=== PATIENT | male | born 1945 | race Caucasian/White ===

== ENCOUNTER 2020-08-21 14:19 | Inpatient (IN) | payer OTHER ==
[~2020-08-21] VITALS: Ht 182.9 cm; Wt 81.6 kg
--- NOTE | ~2020-08-21 | HEMODYNAMI ---
PATIENT:JOSEPH GUNTER MEDICAL RECORD: [id number] : 45 LOCATION:DDanielSD D.2222 ADMISSION DATE: 08/23/20 Generatedon:115:29 Patient name: JOSEPH GUNTER Patient #: [id number] SSN: : Date of study: 08/26/2020 Page: Of Hemodynamic Procedure Report Patient Data Patient Demographics Procedure consent was obtained First Name: OJSEPH Gender: Male Last Name: JANI : 1945 Patient #: [id number] Age: 75 year(s) Race: Unknown Additional ID: [id number] Contact details Address: [facility] State: [place] City: [place] Zip code: [address] Past Medical History Allergies: No known allergies Admission Admission Data Admission Date: 08/23/2020 Admission Time: 17:17 Room #: D.2222 Procedure Procedure Types Cath Procedure Peripheral Cath Diagnostic Procedure Kyphoplasty Kyphoplasty Lumbar Procedure Description Procedure Date Procedure Date: 08/26/2020 Procedure Start Time: 14:56 Procedure End Time: 15:29 Procedure Staff Name Function Caio Mayorga MD Performing Physician Whit Lacey RT Block Breaker Operator YESSICA TORRES RT Block Breaker Operator Lorenza Isabel RN Nurse Abeba Joaquin RN Nurse Sanjay Powell RT Scrub Ree Barry CRNA Additional personnel Procedure Data Cath Procedure Fluoroscopy Diagnostic fluoroscopy Total fluoroscopy Time: 5.9 time: 5.9 min min Diagnostic fluoroscopy Total fluoroscopy dose: 218 dose: 218 mGy mGy Hemodynamics Rest Pre Cath Intra NCS Post Cath Procedure Log Time Note 14:11:54 Use device set IR Diagnostic 14:21:47 Time tracking: Regular hours (M-F 7:00 - 5:00) 14:21:56 Plan of Care:Hemodynamics will remain stable., Cardiac rhythm will remain stable., Comfort level will be maintained., Respiratory function will remain adequate., Patient/ family verbilizes understanding of procedure., Procedure tolerated without complication., Recovers from procedure without complications.. 14:22:31 Patient received from Med/Surg to IR Alert and oriented. Tansferred to table in Prone position. 14:22:35 Signed procedure consent form obtained from patient. 14:22:41 H&P Date Dictated: 08/26/2020 Within 30 days and on chart.. 14:22:43 Pre-procedure instructions explained to patient. 14:22:44 Pre-op teaching completed and patient verbalized understanding. 14:22:46 Family unavailable. 14:22:48 Patient NPO since Midnight. 14:22:56 Patient allergic to No known allergies 14:23:03 Is the patient allergic to Iodine/contrast media? No. 14:23:17 Is patient on blood thinner?No 14:23:20 - 14:24:06 CAITLIN BNCMNT CURV BALLOON [id number] opened to sterile field. 14:24:07 Caitlin BONE CEMENT WITH NEEDLE AUTOPLEX Kit opened to sterile field. 14:24:11 Tegaderm 4 x 4 ([id number]) opened to sterile field. 14:24:16 Sterile Angiographic Pack opened to sterile field. 14:24:17 Bag Decanter () opened to sterile field. 14:24:22 - 14:28:21 ----Pre-sedation anethsthesia assessment.----SEE ANESTHESIA NOTES FOR MONITORING OF PATIENT DURING PROCEDURE 14:30:23 Lumbar area was prepped with dura-prep and draped in sterile fashion 14:30:27 Alarms reviewed by Nikhil Huertas 14:30:30 - 14:52:00 Physician arrived 14:52:25 --------ALL STOP TIME OUT------ 14:52:26 Final Timeout: patient, procedure, and site verified with staff and physician. All members of the team are in agreement. 14:52:30 Lumbar site verified by team. 14:56:10 Procedure started. 14:56:10 Full Disclosure recording started 14:56:49 Local anesthetic to Lumbar area with Lidocaine 1% by Caio Mayorga MD.INITIAL ACCESS ONLY 14:58:22 Ree Barry CRNA present and monitoring patient for TIVA. 15:00:40 Jamshidi needle introduced. 15:09:34 Bone bx needle placed. 15:13:54 Kyphoplasty balloon introduced. 15:16:52 Cement introduced to vertebral body. 15:27:17 Jamshidi needle removed. 15:28:00 Procedure ended.(Physican Out) 15:28:13 Fluoroscopy time 05.90 minutes. 15:28:20 Fluoroscopy dose: 218 mGy 15:28:20 Flurop Dose total: 218 15:28:26 Sharps counted by scrub and verified by R.N. 15:28:36 Post Lumbar area:stable, clean and dry 15:28:41 Procedure and supply charges have been captured, reviewed, submitted an d are correct. 15:28:59 Post procedure instruction explained to patient.Patient verbalizes understanding. 15:29:04 Operative report dictated upon procedure completion. 15:29:05 See physician's report for complete and final results. 15:29:11 Patient transfered to Med/Surg with Bed. 15:29:27 Procedure ended. 15:29:27 Full Disclosure recording stopped Device Usage Item Name Manufacture Quantity Catalog Hospital Part Current Minim al Lot# / Number Charge Number Stock Stock Serial# Code CAITLIN Caitlin 1 [id number] 1 BNCMNT CURV BALLOON [id number] Caitlin BONE [place] 1 [id number] 5 CEMENT WITH NEEDLE AUTOPLEX Kit Tegaderm 4 x 3M 1 1626W [id number] [id number] [id number] 5 4 (1626W) Sterile Cardinal 1 [id number] 5 Angiographic Health Pack Bag Decanter Microtek 1 [id number] 80590 [id number] 5 () [employer] Signature Audit [place] Stage Time Signature Unsigned Intra-Procedure 08/26/2020 YESSICA TORRES RT 3:29:42 PM (R) [place] [id number] [place] [id number]
[2020-08-21] MEDS ORDERED: ASPIRIN EC325 M1 PO (14:54)
[2020-08-21] MEDS ORDERED: LIPITOR10 MG PO (14:54)
[2020-08-21] MEDS ORDERED: DONEPEZIL HCL10 MG PO ×2 (14:56→21:50)
[2020-08-21] MEDS ORDERED: LANOXIN125 MCG PO ×2 (14:56→21:50)
[2020-08-21] MEDS ORDERED: MAG-OX 400 MG400 MG PO ×2 (14:57→22:00)
[2020-08-21] MEDS ORDERED: GUAIFENESI100 MG/5 M PO ×2 (14:57→21:51)
[2020-08-21] MEDS ORDERED: MELATONIN5 MG PO (14:57)
[2020-08-21] MEDS ORDERED: MINIPRESS1 MG PO ×2 (14:58→22:03)
[2020-08-21] MEDS ORDERED: PROPAFENONE HC150 MG PO ×2 (14:58→22:04)
[2020-08-21 15:20] LABS: BASOPHILS 0.5 % (0-2); EOSINOPHILS 2.5 % (0-7); HEMATOCRIT 42.7 % (42.0-54.0); IMMATURE GRANULOCYTES 0.3 % (0-5); LYMPHOCYTE ABS# 1.32 10x3/uL (1.32-3.57); LYMPHOCYTES 21.9 % (15-50); MCH 31.7 pg (26.0-34.0); MCHC 32.8 g/dL (31.0-37.0); MCV 96.8 fL (80.0-100.0); MEAN PLATELET VOLUME 10.1 fL (7.4-10.4); NEUTROPHIL ABS# 4.08 10x3/uL (1.78-5.38); NEUTROPHILS 67.8 % (40-80); PLATELET COUNT 155 10x3/uL (130-400); RBC 4.41 10x6/uL (4.20-6.10); RDW 13.9 % (11.5-14.5)
[2020-08-21 15:21] LABS: CALC OSMOLALITY 285 mosm/kg (275-300); CALCIUM 8.9 mg/dL (8.5-10.1); CARBON DIOXIDE 30.9 mmol/L (21.0-32.0); CHLORIDE - SERUM 106 mmol/L (98-107); GLUCOSE 134 mg/dL (74-106); POTASSIUM - SERUM 4.1 mmol/L (3.5-5.1); SODIUM 141 mmol/L (136-145); UREA NITROGEN 20 mg/dL (7-18); eGFR NON AFRICAN AMERICAN 77 mL/min (90-120)
[2020-08-21 15:27] LABS: ALBUMIN 3.2 g/dL (3.4-5.0); ALKALINE PHOSPHATASE 97 U/L (30-120); ALT (SGPT) 18 U/L (10-68); PROTEIN - SERUM 6.7 g/dL (6.4-8.2)
[2020-08-21 15:53] LABS: BILIRUBIN NEGATIVE (NEGATIVE); KETONE NEGATIVE (NEGATIVE); NITRITE NEGATIVE (NEGATIVE); UROBILINOGEN NORMAL mg/dL (< 2)
--- NOTE | 2020-08-21 16:03 | NUR ---
URINE COLLECTED ET SENT TO LAB.
--- NOTE | 2020-08-21 19:23 | NUR ---
ASSUMED CARE FOR PATIENT AT 1730. SETTLED IN ROOM WITH CALL LIGHT IN REACH. VSS WITH NO C/O FROM PATIENT. ROOM RECIEVED AND REPORT CALLED TO ACCEPTING RN.
[2020-08-21 19:33] VITALS: BP 151/85
--- NOTE | 2020-08-21 19:59 | NUR ---
REC'D PATIENT FROM ER TO ROOM 2222. PATIENT IS CONFUSED AND DENIES NEEDS AT THIS TIME. BED ALARM AND NON SLIP SOCKS IN PLACE. BED IN LOWEST POSITION AND CALL LIGHT WITHIN REACH. ENCOURAGED THE PATIENT TO CALL IF HE HAS NEEDS.
[2020-08-21] MEDS ORDERED: ASPIRIN325 MG PO (21:47)
[2020-08-21] MEDS ORDERED: LIPITOR20 MG PO (21:48)
[2020-08-21] MEDS ORDERED: MELATONIN10 M1 PO (22:00)
[2020-08-21] MEDS ORDERED: LOTRIMIN AF90 GM TOPICAL (22:02)
--- NOTE | 2020-08-21 22:12 | NUR ---
PATIENT OUT OF BED AGAIN. HAVE REDIRECTED PATIENT BACK TO BED SEVERAL TIMES. BROUGHT PATIENT TO NURSES STATION TO SIT IN A CHAIR. PATIENT DENIES OTHER NEEDS AT THIS TIME.
[2020-08-21 23:14] VITALS: BP 151/76; BMI 24.4
--- NOTE | 2020-08-21 23:36 | NUR ---
PATIENT STATED HE IS TIRED AND REQUESTED TO GO TO BED. PATIENT ASKED FOR HIS GLASSES. I WENT THROUGH PATIENT'S BELONGINGS WITH HIM AND DID NOT FIND GLASSES.
[2020-08-22] VITALS: BP 136/79
[2020-08-22 04:00] VITALS: BP 132/79
[2020-08-22 07:43] LABS: APTT 38.3 SECONDS (22.8-39.4); INR 1.26 (0.85-1.17); PROTIME 14.6 SECONDS (11.6-15.0)
--- NOTE | 2020-08-22 08:00 | NUR ---
PT ASSESSED. CL IN REACH. POSSE AND BED ALARM ON. WCTM
[2020-08-22 08:03] LABS: ALBUMIN 3.3 g/dL (3.4-5.0); ANION GAP 11.7 mmol/L (8-16); BILIRUBIN - TOTAL 0.76 mg/dL (0.2-1.3); CALCIUM 9.3 mg/dL (8.5-10.1); CREATININE - SERUM 1.1 mg/dL (0.6-1.3); PHOSPHOROUS 3.2 mg/dL (2.5-4.9); POTASSIUM - SERUM 3.7 mmol/L (3.5-5.1); PROTEIN - SERUM 6.9 g/dL (6.4-8.2)
[2020-08-22 08:40] LABS: BASOPHILS 0.7 % (0-2); EOSINOPHILS 3.7 % (0-7); HEMATOCRIT 43.7 % (42.0-54.0); HEMOGLOBIN 14.2 g/dL (13.5-17.5); IMMATURE GRANULOCYTES 0.3 % (0-5); LYMPHOCYTE ABS# 1.28 10x3/uL (1.32-3.57); LYMPHOCYTES 19.1 % (15-50); MCH 31.1 pg (26.0-34.0); MCHC 32.5 g/dL (31.0-37.0); MCV 95.6 fL (80.0-100.0); MEAN PLATELET VOLUME 11.1 fL (7.4-10.4); MONOCYTES 14.6 % (2-11); NEUTROPHIL ABS# 4.13 10x3/uL (1.78-5.38); NEUTROPHILS 61.6 % (40-80); RBC 4.57 10x6/uL (4.20-6.10); RDW 13.8 % (11.5-14.5); WBC 6.7 10x3/uL (4.8-10.8)
[2020-08-22 08:42] LABS: PLATELET COUNT 211 10x3/uL (130-400)
--- NOTE | 2020-08-22 10:06 | NUR ---
PT HAD SM BM IN BRIEF WITH URINE. BRIEF CHANGED. PT SAT UP FOR BREAKFAST. CL IN REACH. WCTM
[2020-08-22 10:34] VITALS: BP 120/59
--- NOTE | 2020-08-22 10:59 | NUR ---
WALKED PT 250 FT AROUND [place] AND BACK TO CHAIR. STATES HE IS TIRED NOW. CL IN REACH. [facility] CHAIR ALARM ON
[2020-08-22 11:00] VITALS: BP 118/85
--- NOTE | 2020-08-22 14:23 | NUR ---
WALKED WITH PATIENT AROUND MED SURG AND BACK TO ROOM. PT URINATED IN RESTROOM AND BACK TO BED. BED ALARM ON. WCTM
[2020-08-22 16:00] VITALS: BP 109/66
--- NOTE | 2020-08-22 19:00 | NUR ---
BEDSIDE REPORT RECEIVED AND CARE OF PT ASSUMED. PT SITTING IN A RECLINER AT THE NURSES STATION WITH DAY SHIFT NURSE AT THIS TIME....REFUSING TO STAY IN BED OR ROOM, AND WANDERING. ORIENTED TO SELF ONLY. WILL MONITOR FOR NEEDS.
--- NOTE | 2020-08-22 19:51 | NUR ---
HS MEDICATIONS GIVEN. HELD COLACE PT HAS HAD SEVERAL LOOSE STOOLS SINCE SHIFT CHANGE.
[2020-08-22 20:00] VITALS: BP 125/70
--- NOTE | 2020-08-22 20:40 | NUR ---
FOUND NO SALINE LOCK ON PT...??? PULLED OUT. RE-SITED TO RIGHT UPPER ARM USNIG 22 GUAGE CATHETER IN ONE STICK.
--- NOTE | 2020-08-22 20:41 | NUR ---
GAVE MORPHINE 1 MG IVP PER PRN ORDER, PT C/O BACK PAIN AND CONTINUED HEADACHE. WILL MONITOR FOR NEEDS.
--- NOTE | 2020-08-22 22:19 | NUR ---
PT WANDERING OUT OF ROOM AND INTO OTHER PEOPLES ROOMS EVERY FEW MINUTES. BED ALARM IN USE TO ALERT US FOR SAFETY. UNABLE TO RE-ORIENT.
[2020-08-23 04:00] VITALS: BP 130/76
[2020-08-23 07:20] LABS: CALC OSMOLALITY 279 mosm/kg (275-300); CALCIUM 8.8 mg/dL (8.5-10.1); CARBON DIOXIDE 26.1 mmol/L (21.0-32.0); CHLORIDE - SERUM 106 mmol/L (98-107); GLUCOSE 80 mg/dL (74-106); MAGNESIUM - SERUM 1.9 mg/dL (1.8-2.4); PHOSPHOROUS 3.3 mg/dL (2.5-4.9); POTASSIUM - SERUM 4.2 mmol/L (3.5-5.1); SODIUM 139 mmol/L (136-145); UREA NITROGEN 20 mg/dL (7-18); eGFR NON AFRICAN AMERICAN 77 mL/min (90-120)
[2020-08-23 07:21] LABS: BASOPHILS 0.5 % (0-2); EOSINOPHILS 3.6 % (0-7); HEMATOCRIT 44.4 % (42.0-54.0); HEMOGLOBIN 14.4 g/dL (13.5-17.5); IMMATURE GRANULOCYTES 0.6 % (0-5); LYMPHOCYTE ABS# 1.31 10x3/uL (1.32-3.57); LYMPHOCYTES 19.8 % (15-50); MCH 31.3 pg (26.0-34.0); MCHC 32.4 g/dL (31.0-37.0); MCV 96.5 fL (80.0-100.0); MEAN PLATELET VOLUME 11.5 fL (7.4-10.4); MONOCYTES 16.6 % (2-11); NEUTROPHIL ABS# 3.89 10x3/uL (1.78-5.38); NEUTROPHILS 58.9 % (40-80); RDW 13.9 % (11.5-14.5); WBC 6.6 10x3/uL (4.8-10.8)
[2020-08-23 07:36] LABS: PLATELET COUNT 152 10x3/uL (130-400)
[2020-08-23 08:25] VITALS: BP 114/79
--- NOTE | 2020-08-23 08:25 | NUR ---
ASSESSMENT PER FLOW SHEET. PATIENT IS WITHOUT DISTRESS.FALL PREVENTION IN PLACE WITH BED ALARM.DOOR OPEN.
[2020-08-23 12:29] VITALS: BP 108/58
--- NOTE | 2020-08-23 13:33 | NUR ---
HAS EATEN SOME LUNCH. PATIENT WITHOUT SIGNS OF DISTRESS.DOOR OPEN TO MONITOR
[2020-08-23 13:50] VITALS: Ht 182.9 cm; Wt 81.6 kg
[2020-08-23 16:27] VITALS: BP 145/95
--- NOTE | 2020-08-23 19:22 | NUR ---
SPOKE WITH LG [phone]. EXPLAINED HER DAD WAS NEEDING KYPHOPLASTY. SHE WISHES TO SPEAK WITH IR BEFORE SHE CONSENTS TO PROCEDURE.
[2020-08-23 19:59] VITALS: BP 129/61
--- NOTE | 2020-08-24 00:15 | NUR ---
BEFORE CHGE OF SHIFT FOUND IN HALLWAY BED ALARM ON ASSISTED BACK TO BED.TIMMY MAT REARMED.CONFUSES AND DISORIENTED X3.WILL CONTINUE TO MONITOR FOR ANY CHGES AND FOLLOW CURRENT PLAN OF CARE
[2020-08-24 00:41] VITALS: BP 121/67
--- NOTE | 2020-08-24 05:28 | NUR ---
I have reviewed this patient and I concur with the Shift Assessment completed by the Licensed Practical Nurse today this shift.
[2020-08-24 06:07] LABS: ANION GAP 14.1 mmol/L (8-16); CALCIUM 8.9 mg/dL (8.5-10.1); CARBON DIOXIDE 25.8 mmol/L (21.0-32.0); CREATININE - SERUM 1.1 mg/dL (0.6-1.3); PHOSPHOROUS 3.4 mg/dL (2.5-4.9); POTASSIUM - SERUM 3.9 mmol/L (3.5-5.1)
[2020-08-24 06:16] LABS: APTT 35.9 SECONDS (22.8-39.4); INR 1.26 (0.85-1.17); PROTIME 14.7 SECONDS (11.6-15.0)
[2020-08-24 06:35] LABS: BASOPHILS 0.4 % (0-2); EOSINOPHILS 3.4 % (0-7); HEMATOCRIT 40.3 % (42.0-54.0); HEMOGLOBIN 13.7 g/dL (13.5-17.5); IMMATURE GRANULOCYTES 0.4 % (0-5); LYMPHOCYTE ABS# 1.62 10x3/uL (1.32-3.57); LYMPHOCYTES 20.9 % (15-50); MCH 32.3 pg (26.0-34.0); MEAN PLATELET VOLUME 10.9 fL (7.4-10.4); MONOCYTES 17.4 % (2-11); NEUTROPHIL ABS# 4.45 10x3/uL (1.78-5.38); NEUTROPHILS 57.5 % (40-80); RBC 4.24 10x6/uL (4.20-6.10); RDW 13.9 % (11.5-14.5); WBC 7.7 10x3/uL (4.8-10.8)
[2020-08-24 06:36] LABS: PLATELET COUNT 299 10x3/uL (130-400)
[2020-08-24 08:48] VITALS: BP 120/67
--- NOTE | 2020-08-24 10:00 | NUR ---
ASSESSMENT PER FLOW SHEET. PATIENT IS WITHOUT DISTRESS.FALL PREVENTION IN PLACE WITH BED ALARM. DOOR OPEN
[2020-08-24 13:14] VITALS: BP 99/70
[2020-08-24 18:05] VITALS: BP 141/84
--- NOTE | 2020-08-25 08:59 | NUR ---
ALERT AND ORIENTED TO SELF ONLY. ASSESSMENT COMPLETE. ADJUSTED IN BED. BED ALARM ON. CALL DUQUE AND PERSONAL ITEMS IN REACH. WILL CONTINUE TO MONITOR.
[2020-08-25 09:07] VITALS: BP 128/80
[2020-08-25 13:09] VITALS: BP 135/79
[2020-08-25 13:13] LABS: ANION GAP 10.5 mmol/L (8-16); CALCIUM 9.1 mg/dL (8.5-10.1); CARBON DIOXIDE 29.7 mmol/L (21.0-32.0); CREATININE - SERUM 1.3 mg/dL (0.6-1.3); MAGNESIUM - SERUM 2.1 mg/dL (1.8-2.4); PHOSPHOROUS 3.7 mg/dL (2.5-4.9); POTASSIUM - SERUM 4.2 mmol/L (3.5-5.1)
[2020-08-25 13:54] LABS: BASOPHILS 0.4 % (0-2); EOSINOPHILS 2.3 % (0-7); IMMATURE GRANULOCYTES 0.4 % (0-5); LYMPHOCYTE ABS# 0.83 10x3/uL (1.32-3.57); LYMPHOCYTES 10.7 % (15-50); MCH 31.4 pg (26.0-34.0); MCHC 32.6 g/dL (31.0-37.0); MCV 96.2 fL (80.0-100.0); MEAN PLATELET VOLUME 10.7 fL (7.4-10.4); MONOCYTES 16.9 % (2-11); NEUTROPHILS 69.3 % (40-80); RBC 4.78 10x6/uL (4.20-6.10); RDW 13.8 % (11.5-14.5); WBC 7.8 10x3/uL (4.8-10.8)
[2020-08-25 13:56] LABS: PLATELET COUNT 231 10x3/uL (130-400)
[2020-08-25 17:22] VITALS: BP 135/52
[2020-08-25 20:23] VITALS: BP 112/64
--- NOTE | 2020-08-25 22:28 | NUR ---
REC'D WALKING ROUNDS CHGE OF SHIFT STANDING IN HALLWAY TIMMY MAT SOUNDING.ASSISTED BACK TO BED ALARM RESET.REMAINS CONFUSED AND DISORIENTED TO PERSON PLACE TIME AND SITUATION.WILL CONTINUE TO MONITOR FOR ANY CHGES. AND FOLLOW CURRENT PLAN OF CARE. TO BE NPO AT MIDNITE FOR AM POSSIBLE AM PROCEDURE
[2020-08-26] VITALS (12 sets, daily range): BP systolic 102–158; BP diastolic 73–97
--- NOTE | 2020-08-26 05:54 | NUR ---
I have reviewed this patient and I concur with the Shift Assessment completed by the Licensed Practical Nurse today this shift.
[2020-08-26 06:26] LABS: BASOPHILS 0.4 % (0-2); EOSINOPHILS 3.3 % (0-7); HEMATOCRIT 42.1 % (42.0-54.0); HEMOGLOBIN 14.2 g/dL (13.5-17.5); IMMATURE GRANULOCYTES 0.4 % (0-5); LYMPHOCYTE ABS# 1.36 10x3/uL (1.32-3.57); LYMPHOCYTES 16.5 % (15-50); MCH 31.8 pg (26.0-34.0); MCHC 33.7 g/dL (31.0-37.0); MCV 94.4 fL (80.0-100.0); MEAN PLATELET VOLUME 10.1 fL (7.4-10.4); MONOCYTES 15.9 % (2-11); NEUTROPHIL ABS# 5.24 10x3/uL (1.78-5.38); NEUTROPHILS 63.5 % (40-80); PLATELET COUNT 198 10x3/uL (130-400); RBC 4.46 10x6/uL (4.20-6.10); RDW 13.7 % (11.5-14.5); WBC 8.2 10x3/uL (4.8-10.8)
[2020-08-26 06:39] LABS: ANION GAP 11.1 mmol/L (8-16); CARBON DIOXIDE 26.9 mmol/L (21.0-32.0); CREATININE - SERUM 1.1 mg/dL (0.6-1.3); MAGNESIUM - SERUM 1.8 mg/dL (1.8-2.4); PHOSPHOROUS 3.3 mg/dL (2.5-4.9)
--- NOTE | 2020-08-26 07:20 | NUR ---
SPOKE WI NURSE IN IR TO NOTIFY THAT DAUGHTER IN LAW AND SON WON'T SIGN PHONE CONSENTS UNTIL HAVE SPOKEN WITH DR WASHINGTON. STATES WILL TALK TO DR WASHINGTON AND CALL BACK.
--- NOTE | 2020-08-26 07:28 | NUR ---
ALERT AND ORIENTED TO SELF. ASSESSMENT COMPLETE. BED LOW. CALL DUQUE AND PERSONAL ITEMS IN REACH. WILL CONTINUE TO MONITOR.
--- NOTE | 2020-08-26 08:00 | NUR ---
IV SITED TO ABE AFTER ONE ATTEMPT WITH 22 GAUGE BY STUDENT NURSE.
[2020-08-26 08:46] LABS: INR 1.25 (0.85-1.17); PROTIME 14.5 SECONDS (11.6-15.0)
--- NOTE | 2020-08-26 13:10 | NUR ---
EKG PERFORMED AND ON CHART.
--- NOTE | 2020-08-26 13:13 | NUR ---
PREOP MEDS GIVEN PER ORDER.
--- NOTE | 2020-08-26 14:14 | NUR ---
PATIENT TAKEN FOR PROCEDURE AND YVONNE CASTANON NOTIFIED.
--- NOTE | 2020-08-26 15:33 | NUR ---
DC ORDER PUT ON HOLD PER SHANEKA BRYANT D/T PATIENT HAVING KYPHOPLASTY NOW.
--- NOTE | 2020-08-26 16:37 | NUR ---
PATIENT RETURNED FROM PROCEDURE. DRSG C/D/I. VITALS STABLE.
--- NOTE | 2020-08-26 17:20 | MORECARE ---
CASE MANAGEMENT DISCHARGE SUMMARY PATIENT: JOSEPH GUNTER UNIT: [id number] ADM DATE: 08/23/20 AGE: 75 : 45 SEX: M ROOM/BED: D.2222 AUTHOR: YESSY MONTES PHYSICIAN: REFERRING PHYSICIAN: PABLITO BAILON MD DATE OF SERVICE: 08/26/20 Discharge Plan Patient Name: JOSEPH GUNTER Facility: [facility]:[place] : 1945 Planned Disposition: Assisted Living Anticipated Discharge Date: 08/27/20 Discharge Date: Expected LOS: 4 Initial Reviewer: [email or web address] Initial Review Date: 08/21/2020 Generated: 08/26/20 6:19 pm Comments DCP- Discharge Planning Updated by [email or web address]: Myrna Corcoran on 08/26/20 1:[address] 1340 EUSEBIA spoke w/ Kristin at [phone]. Advised the patient maybe discharged today. Verbal update given. Cindy will have her director give CM a call. Natan Received a telephone call from Patricia regarding discharge. EUSEBIA reviewed the MD and physical therapy notes. Patricia expressed concern as the patient does have dementia. EUSEBIA stated I would have the primary nurse to update. Spoke w/ the primary nurse. She had spoken with Dustin three times today. She had spoken with the dtr in law. Consents for procedure obtained and the patient was medicated for procedure. EUSEBIA advised director that kyphoplasty will be done today. Patient Name: JOSEHP GUNTER Page 88888 at 1720 All edits/amendments must be made on the electronic document DICTATION DATE: 08/26/201718 SILVICULTURIST: TANISHA 08/26/201718 RPT#: [id number] DC DATE: STATUS: ADM IN [facility] [address] [place] [address] END OF REPORT
--- NOTE | 2020-08-26 18:10 | NUR ---
RESTING IN BED. POST OP VITALS REMAIN STABLE. WILL CONTINUE TO MONITOR.
--- NOTE | 2020-08-26 23:07 | NUR ---
PATIENT IN THE BED RESTING UPON ARRIVAL OF ASSESSMENT. NO PAIN NOR DISTRESS NOTED. NON SLIP SOCKS ON. BED ALARM WAS ACTIVATED. BED IN LOW POSITION WITH CALL DUQUE LIGHT IN REACH.
[2020-08-27] VITALS: BP 127/76
[2020-08-27 04:00] VITALS: BP 139/72
[2020-08-27 06:26] LABS: CALCIUM 9.1 mg/dL (8.5-10.1); CARBON DIOXIDE 24.3 mmol/L (21.0-32.0); CREATININE - SERUM 1.1 mg/dL (0.6-1.3); MAGNESIUM - SERUM 2.1 mg/dL (1.8-2.4); PHOSPHOROUS 3.6 mg/dL (2.5-4.9); POTASSIUM - SERUM 4.3 mmol/L (3.5-5.1)
[2020-08-27 07:47] LABS: BASOPHILS 0.5 % (0-2); EOSINOPHILS 1.5 % (0-7); HEMATOCRIT 44.7 % (42.0-54.0); HEMOGLOBIN 15.3 g/dL (13.5-17.5); IMMATURE GRANULOCYTES 0.3 % (0-5); LYMPHOCYTE ABS# 1.28 10x3/uL (1.32-3.57); LYMPHOCYTES 12.4 % (15-50); MCH 32.8 pg (26.0-34.0); MCHC 34.2 g/dL (31.0-37.0); MCV 95.9 fL (80.0-100.0); MEAN PLATELET VOLUME 11.4 fL (7.4-10.4); MONOCYTES 17.7 % (2-11); NEUTROPHIL ABS# 7.01 10x3/uL (1.78-5.38); NEUTROPHILS 67.6 % (40-80); PLATELET COUNT 346 10x3/uL (130-400); RBC 4.66 10x6/uL (4.20-6.10); RDW 13.9 % (11.5-14.5); WBC 10.4 10x3/uL (4.8-10.8)
[2020-08-27 08:33] VITALS: BP 105/75
--- NOTE | 2020-08-27 09:52 | NUR ---
PT IN BED RESTING WITH EYES CLOSED, NPO DIET CHANGED TO REGULAR SINCE PT ALREADY HAD PROCEDURE
[2020-08-27 12:30] VITALS: BP 123/84
--- NOTE | 2020-08-27 13:53 | MORECARE ---
CASE MANAGEMENT DISCHARGE SUMMARY PATIENT: JOSEPH GUNTER UNIT: [id number] ADM DATE: 08/23/20 AGE: 75 : 45 SEX: M ROOM/BED: D.2222 AUTHOR: YESSY MONTES PHYSICIAN: REFERRING PHYSICIAN: PABLITO BAILON MD DATE OF SERVICE: 08/27/20 Discharge Plan Patient Name: JOSEPH GUNTER Facility: [facility]:[place] : 1945 Planned Disposition: Assisted Living Anticipated Discharge Date: 08/27/20 Discharge Date: Expected LOS: 4 Initial Reviewer: [email or web address] Initial Review Date: 08/21/2020 Generated: 08/27/20 2:52 pm DCP- Discharge Planning Updated by [email or web address]: Myrna Corcoran on 08/26/20 1:[address] 1340 EUSEBIA spoke w/ Kristin at [phone]. Advised the patient maybe discharged today. Verbal update given. Cindy will have her director give CM a call. Natan Received a telephone call from Patricia regarding discharge. EUSEBIA reviewed the MD and physical therapy notes. Patricia expressed concern as the patient does have dementia. EUSEBIA stated I would have the primary nurse to update. Spoke w/ the primary nurse. She had spoken with Dustin three times today. She had spoken with the dtr in law. Consents for procedure obtained and the patient was medicated for procedure. EUSEBIA advised director that kyphoplasty will be done today. External Providers External Provider: OTHER-OTHER Next Contact Date: Service Request Date: Service Type: Resolution: Reviewer: Comments: Last DP export: 08/26/20 4:20 p Patient Name: JOSEPH GUNTER Page 10168 at 1353 All edits/amendments must be made on the electronic document DICTATION DATE: 08/27/20 1352 PROCESS EXCELLENCE MANAGER: TANISHA 08/27/20 1352 RPT#: [id number] DC DATE: STATUS: ADM IN [facility] [address] [place] [address] END OF REPORT
--- NOTE | 2020-08-27 14:10 | MORECARE ---
CASE MANAGEMENT DISCHARGE SUMMARY PATIENT: JOSEPH GUNTER UNIT: [id number] ADM DATE: 08/23/20 AGE: 75 : 45 SEX: M ROOM/BED: D.2222 AUTHOR: JYOTIDOC PHYSICIAN: REFERRING PHYSICIAN: PABLITO BAILON MD DATE OF SERVICE: 08/27/20 Discharge Plan Patient Name: JOSEPH GUNTER Facility: [facility]:[place] : 1945 Planned Disposition: Assisted Living Anticipated Discharge Date: 08/27/20 Discharge Date: Expected LOS: 4 Initial Reviewer: [email or web address] Initial Review Date: 08/21/2020 Generated: 08/27/20 3:09 pm Comments DCP- Discharge Planning Updated by [email or web address]: Ev Manzo on 08/27/20 1:[address] Patient Name: JOSEPH GUNTER Admission Status: ER Accout number: [id number] Admission Date: 08-23-2020 : 1945 Admission Diagnosis:COLLAPSED VERTEBRA, NEC, LUMBAR REGION, INIT Attending: PABLITO PARADA Current LOS: 4 Anticipated DC Date: 08-27-2020 Planned Disposition: Assisted Living Primary Insurance: [employer] Discharge Planning Comments: SPOKE WITH NANO AT [facility] ABOUT PATIENT DISCHARGING BACK TO THEM TODAY. I AM NOW WAITING CALL BACK FROM THEIR DON LETHA. CM TO FOLLOW . Gas Operations Analyst: Ev Manzo DCP- Discharge Planning Updated by [email or web address]: Myrna Corcoran on 08/26/20 1:[address] 1340 EUSEBIA spoke w/ Kristin at [phone]. Advised the patient maybe discharged today. Verbal update given. Nano will have her director give CM a call. Natan Received a telephone call from Letha regarding discharge. EUSEBIA reviewed the MD and physical therapy notes. Letha expressed concern as the patient does have dementia. EUSEBIA stated I would have the primary nurse to update. Spoke w/ the primary nurse. She had spoken with [place] three times today. She had spoken with the dtr in law. Consents for procedure obtained and the patient was medicated for procedure. EUSEBIA advised director that kyphoplasty will be done today. Last DP export: 08/27/20 12:53 p Patient Name: JOSEPH GUNTER Page 44151 at 1410 All edits/amendments must be made on the electronic document DICTATION DATE: 08/27/201409 INTERNATIONAL FLIGHT ATTENDANT: TANISHA 08/27/201409 RPT#: [id number] DC DATE: STATUS: ADM IN [facility] [address] [place] [address] END OF REPORT
--- NOTE | 2020-08-27 14:34 | MORECARE ---
CASE MANAGEMENT DISCHARGE SUMMARY PATIENT: JOSEPH GUNTER UNIT: [id number] ADM DATE: 08/23/20 AGE: 75 : 45 SEX: M ROOM/BED: D.2222 AUTHOR: JYOTIDOC PHYSICIAN: REFERRING PHYSICIAN: PABLITO BAILON MD DATE OF SERVICE: 08/27/20 Discharge Plan Patient Name: JOSEPH GUNTER Facility: [facility]:[place] : 1945 Planned Disposition: Assisted Living Anticipated Discharge Date: 08/27/20 Discharge Date: Expected LOS: 4 Initial Reviewer: [email or web address] Initial Review Date: 08/21/2020 Generated: 08/27/20 3:33 pm Comments DCP- Discharge Planning Updated by [email or web address]: Ev Manzo on 08/27/20 1:[address] Patient Name: JOSEPH GUNTER Admission Status: ER Accout number: [id number] Admission Date: 08-23-2020 : 1945 Admission Diagnosis:COLLAPSED VERTEBRA, NEC, LUMBAR REGION, INIT Attending: PABLITO PARADA Current LOS: 4 Anticipated DC Date: 08-27-2020 Planned Disposition: Assisted Living Primary Insurance: [employer] Discharge Planning Comments: SPOKE WITH NANO AT [facility] ABOUT PATIENT DISCHARGING BACK TO THEM TODAY. I AM NOW WAITING CALL BACK FROM THEIR DON LETHA. CM TO FOLLOW . Molecular Biologist: Ev Manzo DCP- Discharge Planning Updated by [email or web address]: Myrna Corcoran on 08/26/20 1:[address] 1340 EUSEBIA spoke w/ Kristin at [phone]. Advised the patient maybe discharged today. Verbal update given. Nano will have her director give CM a call. Natan Received a telephone call from Letha regarding discharge. EUSEBIA reviewed the MD and physical therapy notes. Letha expressed concern as the patient does have dementia. EUSEBIA stated I would have the primary nurse to update. Spoke w/ the primary nurse. She had spoken with Williams three times today. She had spoken with the dtr in law. Consents for procedure obtained and the patient was medicated for procedure. EUSEBIA advised director that kyphoplasty will be done today. External Providers External Provider: [facility] Contact Date: Service Request Date: Service Type: Resolution: Reviewer: Comments: Last DP export: 08/27/20 1:10 p Patient Name: JOSEPH GUNTER Page [id number] at 1434 All edits/amendments must be made on the electronic document DICTATION DATE: 08/27/201432 ANNEALING FURNACE OPERATOR: TANISHA 08/27/20 1433 RPT#: [id number] DC DATE: STATUS: ADM IN [facility] [address] [place] [address] END OF REPORT
--- NOTE | 2020-08-27 14:54 | NUR ---
OT NOTE: PT IS CONFUSED AND REQUIRED EXTENSIVE CUES. PT COMPLETED BED MOB WITH MIN A AND CUES FOR INCREASED SAFETY. PT COMPLETED ORAL CARE WITH MAX A. [id number] THANK YOU,ANGELICA SANCHEZ
--- NOTE | 2020-08-27 16:06 | MORECARE ---
CASE MANAGEMENT DISCHARGE SUMMARY PATIENT: JOSEPH GUNTER UNIT: [id number] ADM DATE: 08/23/20 AGE: 75 : 45 SEX: M ROOM/BED: D.2222 AUTHOR: JYOTIDOC PHYSICIAN: REFERRING PHYSICIAN: PABLITO BAILON MD DATE OF SERVICE: 08/27/20 Discharge Plan Patient Name: JOSEPH GUNTER Facility: [facility]:[place] : 1945 Planned Disposition: Assisted Living Anticipated Discharge Date: 08/27/20 Discharge Date: Expected LOS: 4 Initial Reviewer: [email or web address] Initial Review Date: 08/21/2020 Generated: 08/27/20 5:05 pm Comments DCP- Discharge Planning Updated by [email or web address]: Ev Manzo on 08/27/20 2:[address] Patient Name: JOSEPH GUNTER Admission Status: ER Accout number: [id number] Admission Date: 08-23-2020 : 1945 Admission Diagnosis:COLLAPSED VERTEBRA, NEC, LUMBAR REGION, INIT Attending: PABLITO PARADA Current LOS: 4 Anticipated DC Date: 08-27-2020 Planned Disposition: Assisted Living Primary Insurance: [employer] Discharge Planning Comments: RN GIVEN NUMBER TO CALL REPORT. [facility] WILL SEND A [facility] TO PICK HIM UP. I WILL FAX REFERRAL TO [facility]. CM TO FOLLOW AND ASSIST NEEDED. Land Acquisition Analyst: Ev Manzo DCP- Discharge Planning Updated by [email or web address]: Ev Manzo on 08/27/20 1:[address] Patient Name: JOSEPH GUNTER Admission Status: ER Accout number: [id number] Admission Date: 08-23-2020 : 1945 Admission Diagnosis:COLLAPSED VERTEBRA, NEC, LUMBAR REGION, INIT Attending: PABLITO PARADA Current LOS: 4 Anticipated DC Date: 08-27-2020 Planned Disposition: Assisted Living Primary Insurance: [employer] Discharge Planning Comments: SPOKE WITH NANO AT [facility] ABOUT PATIENT DISCHARGING BACK TO THEM TODAY. I AM NOW WAITING CALL BACK FROM THEIR MANUEL MONAE. CM TO FOLLOW . Land Acquisition Analyst: Ev Manzo DCP- Discharge Planning Updated by [email or web address]: Myrna Corcoran on 08/26/20 1:[address] 1340 CM spoke w/ Kristin at [phone]. Advised the patient maybe discharged today. Verbal update given. Nano will have her director give CM a call. Natan Received a telephone call from Patricia regarding discharge. EUSEBIA reviewed the MD and physical therapy notes. Patricia expressed concern as the patient does have dementia. EUSEBIA stated I would have the primary nurse to update. Spoke w/ the primary nurse. She had spoken with Dustin three times today. She had spoken with the dtr in law. Consents for procedure obtained and the patient was medicated for procedure. EUSEBIA advised director that kyphoplasty will be done today. DCPIA - Discharge Planning Initial Assessment Updated by [email or web address]: Ev Manzo on 08/27/20 4:00 pm * PCP [facility] * Facility Name [facility] * Additional services required to return to the preadmission environment? Yes * Can the patient safely return to the preadmission environment? Yes * Has this patient been hospitalized within the prior 30 days at any hospital? No External Providers External Provider: [facility] Next Contact Date: Service Request Date: Service Type: Resolution: Reviewer: Comments: Last DP export: 08/27/20 1:34 p Patient Name: JOSEPH GUNTER Page 28058 at 1606 All edits/amendments must be made on the electronic document DICTATION DATE: 08/27/20 160 WIC SITE COORDINATOR: TANISHA 08/27/20 160 RPT#: [id number] DC DATE: STATUS: ADM IN [facility] [address] [place] [address] END OF REPORT
--- NOTE | 2020-08-27 16:28 | NUR ---
REPORT CALLED TO СЕРГЕЙ AT [facility]
--- NOTE | 2020-08-27 16:34 | NUR ---
IV REMOVED, TIP INTACT, PT TOLERATED WELL, COVERED WITH GAUZE AND TAPE
[2020-08-27 16:52] VITALS: BP 148/88
--- NOTE | 2020-08-27 16:56 | NUR ---
PT LEFT VIA WHEELCHAIR ASSISTED BY [employer]SP[employer] TO [place] [facility] WHERE A RIDE PROVIDED BY MICHELLE WILL TAKE CARE OF HIM
--- NOTE | 2020-08-30 07:31 | MORECARE ---
CASE MANAGEMENT DISCHARGE SUMMARY PATIENT: JOSEPH GUNTER UNIT: [id number] ADM DATE: 08/23/20 AGE: 75 : 45 SEX: M ROOM/BED: D.2222 AUTHOR: YESSY MONTES PHYSICIAN: REFERRING PHYSICIAN: PABLITO BAILON MD DATE OF SERVICE: 08/30/20 Discharge Plan Patient Name: JOSEPH GUNTER Facility: [facility]:[place] : 1945 Planned Disposition: Assisted Living Anticipated Discharge Date: 08/27/20 Discharge Date: 08/27/2020 Expected LOS: 4 Initial Reviewer: [email or web address] Initial Review Date: 08/21/2020 Generated: 08/30/20 8:31 am Comments DCP- Discharge Planning Updated by [email or web address]: Ev Manzo on 08/27/20 2:[address] Patient Name: JOSEPH GUNTER Admission Status: ER Accout number: [id number] Admission Date: 08-23-2020 : 1945 Admission Diagnosis:COLLAPSED VERTEBRA, NEC, LUMBAR REGION, INIT Attending: PABLITO PARADA Current LOS: 4 Anticipated DC Date: 08-27-2020 Planned Disposition: Assisted Living Primary Insurance: [employer] Discharge Planning Comments: RN GIVEN NUMBER TO CALL REPORT. [facility] WILL SEND A VAN TO PICK HIM UP. I WILL FAX REFERRAL TO [facility]. CM TO FOLLOW AND ASSIST NEEDED. Batting Machine Operator Insulation: vE Manzo DCP- Discharge Planning Updated by [email or web address]: Ev Manzo on 08/27/20 1:[address] Patient Name: JOSEPH GUNTER Admission Status: ER Accout number: [id number] Admission Date: 08-23-2020 : 1945 Admission Diagnosis:COLLAPSED VERTEBRA, NEC, LUMBAR REGION, INIT Attending: PABLITO PARADA Current LOS: 4 Anticipated DC Date: 08-27-2020 Planned Disposition: Assisted Living Primary Insurance: [employer] Discharge Planning Comments: SPOKE WITH NANO AT [facility] ABOUT PATIENT DISCHARGING BACK TO THEM TODAY. I AM NOW WAITING CALL BACK FROM THEIR MANUEL MONAE. CM TO FOLLOW . Batting Machine Operator Insulation: Ev Manzo DCP- Discharge Planning Updated by [email or web address]: Myrna Corcoran on 08/26/20 1:[address] 1340 CM spoke w/ Kristin at [phone]. Advised the patient maybe discharged today. Verbal update given. Nano will have her director give CM a call. Natan Received a telephone call from Patricia regarding discharge. EUSEBIA reviewed the MD and physical therapy notes. Patricia expressed concern as the patient does have dementia. EUSEBIA stated I would have the primary nurse to update. Spoke w/ the primary nurse. She had spoken with Dustin three times today. She had spoken with the dtr in law. Consents for procedure obtained and the patient was medicated for procedure. EUSEBIA advised director that kyphoplasty will be done today. DCPIA - Discharge Planning Initial Assessment Updated by [email or web address]: Ev Manzo on 08/27/20 4:00 pm * PCP [facility] * Facility Name [facility] * Additional services required to return to the preadmission environment? Yes * Can the patient safely return to the preadmission environment? Yes * Has this patient been hospitalized within the prior 30 days at any hospital? No Last DP export: 08/27/20 3:06 p Patient Name: JOSEPH GUNTER Page 19753 at 0731 All edits/amendments must be made on the electronic document DICTATION DATE: 08/30/20730 MANAGER MANAGED CARE: TANISHA 08/30/20730 RPT#: [id number] DC DATE:08/27/20 STATUS: DIS IN [facility] [address] [id number] [address] END OF REPORT
== END 2020-08-27 17:05 | DRG 479 ==
LOC: D.ER 14:19 → D.MS 17:10 → D.EDHOLD 17:10 → OBSVTIME 17:11 → D.MS 18:17
PROVIDERS: Family Medicine; General Practice; ADMIT Family Medicine; ATTEND Family Medicine
PROC: 0QB03ZX Excision of Lumbar Vertebra, Percutaneous Approach, Diagnostic (ICD-10-PCS; 2020-08-26)
PROC: 0QU03JZ Supplement Lumbar Vertebra with Synthetic Substitute, Percutaneous Approach (ICD-10-PCS; 2020-08-26)
PROC: 0QS03ZZ Reposition Lumbar Vertebra, Percutaneous Approach (ICD-10-PCS; principal; 2020-08-26 14:54)
DX: M48.56XA Collapsed vertebra, not elsewhere classified, lumbar region, initial encounter for fracture (principal); G30.9 Alzheimer's disease, unspecified; F02.80 Dementia in other diseases classified elsewhere, unspecified severity, without behavioral disturbance, psychotic disturbance, mood disturbance, and anxiety; K59.00 Constipation, unspecified